=== PATIENT | female | born 1985 | race African-American/Black ===

== ENCOUNTER 2022-05-11 19:01 | Emergency (ER) | payer SELFPAY ==
[~2022-05-11] VITALS: Ht 170.2 cm; Wt 47.0 kg
[2022-05-11 19:02] VITALS: BP 139/91
== END 2022-05-11 20:59 | disposition left against medical advice (07) ==
LOC: ER 19:01
DX: Z53.21 Procedure and treatment not carried out due to patient leaving prior to being seen by health care provider (principal)